=== PATIENT | male | born 1955 | race Caucasian/White ===

== ENCOUNTER → 2016-12-29 | Outpatient (CLI) | payer BC ==
--- NOTE | 2016-12-29 16:08 | MRI ---
MRI left knee without contrast Indication: Aching left knee pain. Concern for pes anserine bursitis Comparison: None Technique: Multiplanar, multi sequence MR images of the left knee were obtained without contrast. Findings: The marrow signal and bony alignment are normal, without evidence for acute fracture, stres s reaction, or dislocation. There is mild tricompartmental chondrosis, without full-thickness chondra l defect or subchondral marrow signal abnormality. There is intermediate signal within the medial men iscal posterior horn extending to the inferior meniscal surface, consistent with tear, likely degener ative. No lateral meniscal tear. The ACL, PCL, mcl, major lateral stabilizers, and extensor mechanism are intact. The tendons comprisi ng the pes anserine appear grossly normal. No significant pes anserine bursal fluid. No significant j oint effusion or popliteal cyst. Impression: 1. 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 2. No evidence for pes anserine bursitis. Reported By:
== END | disposition home or self-care (01) | DRG 558 ==
LOC: RAD 14:08
PROVIDERS: ATTEND Orthopaedic Surgery
DX: M70.52 Other bursitis of knee, left knee (principal); Y93.89 Activity, other specified; S83.242A Other tear of medial meniscus, current injury, left knee, initial encounter; X58.XXXA Exposure to other specified factors, initial encounter
CPT/HCPCS: 73721